=== PATIENT | female | born 1985 | race Caucasian/White ===

== ENCOUNTER 2017-10-27 16:13 | Emergency (ER) | payer MEDICAID ==
[2017-10-27 16:13] VITALS: BMI 33.6
[2017-10-27 17:05] LABS: BASO % 0.8 % (0.0-2.0); EOS # 0.1 K/uL (0.0-0.7); EOS % 1.7 % (0.0-4.0); HEMOGLOBIN 12.9 g/dL (11.0-16.0); LYMPH # 2.1 K/uL (1.0-4.3); LYMPH % 49.3 % (20.0-40.0); MEAN CELL VOLUME 82.8 fL (81.0-99.0); MEAN CORPUSCULAR HEMOGLOBIN 27.9 pg (27.0-31.0); MEAN CORPUSCULAR HGB CONC 33.7 g/dL (33.0-37.0); MEAN PLATELET VOLUME 9.4 fL (7.2-11.7); MONO # 0.4 K/uL (0.0-0.8); MONO % 10.2 % (0.0-10.0); NEUT # 1.6 K/uL (1.8-7.0); NRBC % 0.1 % (0.0-2.0); RBC 4.61 Mil/uL (3.80-5.20); RED CELL DISTRIBUTION WIDTH 13.4 % (11.5-14.5); WHITE BLOOD COUNT 4.2 K/uL (4.8-10.8)
--- NOTE | 2017-10-27 17:14 | RAD ---
Date of service: 10/27/2017 HISTORY: Palpitations COMPARISON: No prior. TECHNIQUE: Chest PA and lateral FINDINGS: LUNGS: No active pulmonary disease. PLEURA: No significant pleural effusion identified. No pneumothorax apparent. CARDIOVASCULAR: Normal. OSSEOUS STRUCTURES: No significant abnormalities. VISUALIZED UPPER ABDOMEN: Normal. OTHER FINDINGS: None. IMPRESSION: No active disease.
[2017-10-27 17:18] LABS: ALB/GLOB RATIO 1.4 (1.0-2.1); ALBUMIN 4.4 g/dL (3.5-5.0); ALT/SGPT 35 U/L (9-52); AST/SGOT 20 U/L (14-36); BLOOD UREA NITROGEN 12 mg/dL (7-17); CALCIUM 9.3 mg/dl (8.6-10.4); GFR AFRICAN-AMERICAN > 60; GFR NON-AFRICAN AMERICAN > 60
[2017-10-27 17:29] LABS: B-TYPE NATRIURETIC PEPTIDE 75.1 pg/mL (0-450)
[2017-10-27 17:55] LABS: HCG,QUALITATIVE URINE NEGATIVE (NEGATIVE)
[2017-10-27 18:01] LABS: FREE T4 1.08 ng/dL (0.78-2.19)
[2017-10-27 18:02] LABS: SQUAMOUS EPITHIAL 10 /hpf (0-5); URINE BILIRUBIN NEGATIVE (NEGATIVE); URINE BLOOD 1+ (NEGATIVE); URINE CLARITY Hazy (Clear); URINE COLOR Yellow (YELLOW); URINE GLUCOSE (UA) NORMAL (Normal); URINE LEUKOCYTE ESTERASE 3+ Leu/uL (Negative); URINE PROTEIN NEGATIVE (NEGATIVE); URINE UROBILINOGEN NORMAL mg/dL (0.2-1.0)
--- NOTE | 2017-10-27 18:08 | C.PDOC ---
Time Seen by Provider: 10/27/17 16:36 Chief Complaint (Nursing): Palpitations History Per: Patient, Family Onset/Duration Of Symptoms: Days (about 1 month) Current Symptoms Are (Timing): Still Present Quality Of Symptoms: Rapid Heart Rate Severity: Moderate Exacerbating Factor(s): Pos: None Additional History Per: Prior Records Past Medical History Reviewed: Historical Data, Nursing Documentation, Vital Signs Vital Signs: Last Vital Signs Temp 98.3 F 10/27/17 16:27 Pulse 66 10/27/17 16:27 Resp 18 10/27/17 16:27 BP 109/76 10/27/17 16:27 Pulse Ox 100 10/27/17 18:10 - Medical History PMH: No Chronic Diseases Surgical History: No Surg Hx - [facility] Procedures NAIL REMOVAL (01/30/13) Family History: States: Unknown Family Hx - Social History Hx Tobacco Use: No Hx Alcohol Use: No Hx Substance Use: No - Immunization History Hx Tetanus Toxoid Vaccination: No Hx Influenza Vaccination: No Hx Pneumococcal Vaccination: No Review Of Systems Except As Marked, All Systems Reviewed And Found Negative. Constitutional: Positive for: Malaise. Negative for: Fever ENT: Negative for: Throat Pain, Throat Swelling Cardiovascular: Negative for: Chest Pain Respiratory: Positive for: SOB with Excertion (?). Negative for: Hemoptysis Gastrointestinal: Positive for: Abdominal Pain (suprapubic, last night). Negative for: Vomiting, Diarrhea Genitourinary: Positive for: Dysuria Musculoskeletal: Negative for: Neck Pain, Back Pain Skin: Negative for: Rash Neurological: Negative for: Weakness, Numbness, Seizures Physical Exam - Physical Exam Appears: Non-toxic, No Acute Distress Skin: Normal Color, Warm, Dry, No Rash Head: Atraumatic, Normacephalic Eye(s): bilateral: Normal Inspection, PERRL, EOMI Oral Mucosa: Moist, No Drooling, No Trismus Tongue: Normal Appearing, No Swelling Lips: Normal Appearing Gingiva: No Abscess Throat: Normal Neck: Normal ROM, Supple Lymphatic: No Adenopathy Cardiovascular: Rhythm Regular Respiratory: Normal Breath Sounds, No Accessory Muscle Use Gastrointestinal/Abdominal: Soft, No Tenderness Back: No CVA Tenderness Extremity: Normal ROM, No Calf Tenderness Extremity: Bilateral: Normal Color And Temperature Neurological/Psych: Oriented x3, Normal Speech, Normal Cognition, Normal Motor, Normal Sensation ED Course And Treatment - Laboratory Results Result Diagrams: 10/27/17 16:59 10/27/17 16:59 Interpretation Of Abnormal: UTI Urine POC: Negative ECG: Interpreted By Me, Viewed By Me ECG Rhythm: Sinus Rhythm, Nonspecific Changes ECG Interpretation: No Acute Changes Rate From EC O2 Sat by Pulse Oximetry: 100 Pulse Ox Interpretation: Normal - Radiology CXR: Viewed By Me, Read By Radiologist CXR Interpretation: Yes: No Acute Disease Disposition Counseled Patient/Family Regarding: Studies Performed, Diagnosis, Need For Followup, Rx Given - Disposition Referrals: Juan David Jorge MD [Non-Staff] - Disposition: HOME/ ROUTINE Disposition Time: 18:15 Condition: STABLE Additional Instructions: Follow up with your doctor within 1 week for further evaluation and treatment. Return to the ER if you develop worsening of symptoms or if you have any other concerns. Prescriptions: Nitrofurantoin Macrocrystals [Macrobid] 1 cap PO BID #14 cap Instructions: Urinary Tract Infection, Adult (DC) Forms: [email or web address] (Faroese) - Clinical Impression Clinical Impression: UTI (urinary tract infection), Palpitations
[2017-10-27 18:22] VITALS: BP 113/80; PULSE 62; RESP 16; TEMP 98.4; O2SAT 99
--- NOTE | 2017-10-31 14:46 | CARD ---
APPROVED REPORT Date of service: 10/27/2017 EKG Measurement Heart [id number] <Conclusion> Normal sinus rhythm Nonspecific T wave abnormality Abnormal ECG
== END 2017-10-27 18:33 | disposition home or self-care (01) ==
LOC: C.ER 16:13
DX: N39.0 Urinary tract infection, site not specified (principal); R00.2 Palpitations